=== PATIENT | female | born 1995 | race Caucasian/White ===

== ENCOUNTER 2022-06-24 14:34 | Emergency (ER) | payer OTHER ==
[~2022-06-24] VITALS: Ht 162.6 cm; Wt 64.9 kg
--- NOTE | 2022-06-24 14:55 | NUR ---
C/O VAG BLEED 2 HOURS AGO WITH LOWER AB PAIN. DENIES DYSURIA PT TOOK "3 HOME TEST. THEY WERE POSITIVE"
[2022-06-24 15:15] LABS: BASOPHILS % (AUTO) 0.2 % (0.0-2.0); EOSINOPHILS % (AUTO) 2.5 % (0.0-6.0); HEMATOCRIT 38 % (33-45); LYMPHOCYTES # (AUTO) 1.6 K/uL (0.8-4.8); LYMPHOCYTES % (AUTO) 21.8 % (20.0-44.0); MEAN CORPUSCULAR HGB CONC 34 g/dl (31.0-36.0); MEAN CORPUSCULAR VOLUME 88 fL (82-100); MONOCYTES # (AUTO) 0.5 K/uL (0.1-1.30); MONOCYTES % (AUTO) 6.2 % (2.0-12.0); NEUTROPHILS # (AUTO) 5.2 K/uL (1.8-8.9); NEUTROPHILS % (AUTO) 69.3 % (43.0-81.0); PLATELET COUNT (AUTO) 286 K/uL (150-450); RED BLOOD CELL COUNT(AUTO) 4.35 MIL/uL (4.0-5.2); WHITE BLOOD COUNT (AUTO) 7.6 K/uL (4.3-11.0)
[2022-06-24 15:25] LABS: CALCIUM, SERUM 8.2 mg/dL (8.5-10.1); CREATININE 0.8 mg/dL (0.6-1.3); POTASSIUM 3.3 mmol/L (3.5-5.1)
--- NOTE | 2022-06-24 15:30 | NUR ---
US tech at bedside
[2022-06-24] MEDS ORDERED: ACETAMINOPHEN 325 MG TABLET ONE (15:46)
[2022-06-24] MEDS ORDERED: POTASSIUM CHLORIDE 20 MEQ TAB.PRT.SR PO ONE ×2 (15:46→16:00)
[2022-06-24] MEDS ORDERED: ACETAMINOPHEN 325 MG TABLET PO ONE (16:00)
[2022-06-24] MEDS ORDERED: PNV1CAPS46 PO (16:33)
--- NOTE | 2022-06-24 17:08 | NUR ---
Patient discharged to home in stable condition. Written and verbal after care instructions given. Patient verbalizes understanding of instruction.
[2022-06-24 17:09] VITALS: BP 123/81
== END 2022-06-24 17:09 | disposition home or self-care (01) ==
LOC: ER 14:36
DX: N93.9 Abnormal uterine and vaginal bleeding, unspecified (principal); Z60.2 Problems related to living alone
CPT/HCPCS: 36415; 76856-TC; 80048-TC; 84702-TC; 84703-TC; 85025-TC